=== PATIENT | male | born 1970 | race Caucasian/White ===

== ENCOUNTER 2016-09-22 10:01 | Observation (INO) ==
[2016-09-22 10:31] LABS: Basophils # 0.1 K/mcL (0.0-0.2); Basophils % 0.6 %; Eosinophils # 0.4 K/mcL (0.0-0.6); Eosinophils % 4.4 %; Hematocrit 48.9 % (37.5-50.1); Hemoglobin 16.3 g/dL (12.9-16.9); Immature Granulocytes % 0.3 % (0-4); Lymphocytes # 2.4 K/mcL (0.6-4.6); Lymphocytes % 29.9 %; Mean Corpuscular HGB Conc 33.3 g/dL (31.6-35.5); Mean Corpuscular Hemoglobin 30.8 pg (28.0-33.3); Mean Corpuscular Volume 92.4 fL (83.0-100.0); Mean Platelet Volume 10.7 fL (9.4-12.4); Monocytes # 0.5 K/mcL (0.0-1.3); Monocytes % 6.1 %; Neutrophils # 4.6 K/mcL (1.6-8.9); Platelet Count 287 K/mcL (140-400); Red Blood Count 5.29 M/mcL (4.19-5.50); Red Cell Distribution Width 13.4 % (11.5-14.5); Segmented Neutrophils % 58.7 %
[2016-09-22 10:33] LABS: INR 2.4; Prothrombin Time 26.3 Seconds (9.4-12.1)
[2016-09-22 10:36] LABS: Activated Partial Thrombo Time 42.4 Seconds (26.0-36.0)
[2016-09-22 10:39] LABS: BUN/Creatinine Ratio 14 (6-26); Blood Urea Nitrogen 10 mg/dL (8-26); Calcium 6.8 mg/dL (8.6-10.8); Carbon Dioxide 24 mEq/L (19-29); Chloride 113 mEq/L (98-109); Glucose 105 mg/dL (70-99); Osmolality,Calculated 293 (280-300); Potassium 2.9 mEq/L (3.5-4.5); Sodium 142 mEq/L (136-145); eGFR For African Americans > 60 (> 60); eGFR For Non-African Americans > 60 (> 60)
--- NOTE | 2016-09-22 10:39 | Emergency Department Note ---
Disposition Clinical Impression: Hypokalemia Chest pain Qualifiers: Chest pain type: unspecified Qualified Code(s): R07.9 - Chest pain, unspecified Disposition: Admitted As Inpatient Condition: Serious Chest Pain HPI - General Chief Complaint: ED Chest Pain Stated Complaint: CP Time Seen by Provider: 09/22/16 10:15 Source: patient Limitations: no limitations Vital Signs Reviewed: Yes Nursing Notes Reviewed: Yes - History of Present Illness HPI Narrative: Mr. Piedra is a 45-year-old man presented ER for chest pain that began at 8 AM. Has a pertinent history of CHF, CAD, hypertension, PAD, COPD, [place] in 2013 resulting in 2 vessel CABG[address] Patient [address] Dr[address] Akers for cardiology, has an appointment next week. Patient states his pain is precordial, sharp, stabbing pain that radiates to his left shoulder. She denies radiation to his jaw or back. Initially pain rated as 10out of 10, currently an 8 out of 10. Denies N/V , fever, recent illness. Patient states he normally takes his medications of the evening, taking anything for the pain this morning. And since nothing seems to make the pain better but walking makes the pain worse. Pt complaint: chest pain Onset (ago): hour(s) Time: 08:00 Duration: constant Onset: awoke with symptoms Pain Location: left chest Severity: severe Severity scale (1-10): 8 Quality: sharp Pain Radiation: LUE Worsens with: exertion, movement Context: history of DVT/PE Associated symptoms: Reports: dyspnea. Denies: nausea, vomiting, syncope Treatments prior to arrival chest pain: none - Related Data Home Medications Medication Instructions Recorded Confirmed Aspirin 81 mg PO DAILY 04/28/15 09/22/16 Atorvastatin [Lipitor] 80 mg PO HS 04/28/15 09/22/16 Carvedilol [Coreg] 6.25 mg PO BID 04/28/15 09/22/16 Famotidine [Pepcid] 20 mg PO BID 04/28/15 09/22/16 Isosorbide MONOnitrate (24 HR) 90 mg PO DAILY 04/28/15 09/22/16 [Imdur] Lisinopril [Zestril] 5 mg PO DAILY 04/28/15 09/22/16 Nitroglycerin [Nitrostat] 0.4 mg SL AD PRN 01/18/16 09/22/16 Enoxaparin [Lovenox] 100 mg SQ Q12HR PRN 06/14/16 09/22/16 Ropinirole HCl [Requip] 0.5 mg PO HS 06/14/16 09/22/16 Tizanidine HCl [Zanaflex] 2 mg PO TID PRN 06/14/16 09/22/16 Acetaminophen w/Cod 300-30 mg 1 tab PO Q8H PRN 09/22/16 09/22/16 [Tylenol w/Codeine #3] Warfarin [Coumadin] 5 mg PO DAILY 09/22/16 09/22/16 Previous Rx's Medication Instructions Recorded Furosemide [Lasix] 20 mg PO BID #90 tablet 06/18/16 Potassium Chloride 10 meq PO BIDWM #60 tab.er.prt 06/18/16 Allergies Allergy/AdvReac Type Severity Reaction Status Date / Time tramadol Allergy Hives Verified 02/10/15 17:31 All systems ED: reviewed and negative except as stated. Constitutional: Denies: fever, chills Eyes: Denies: vision change ENT ED: Denies: hearing loss Cardiovascular: Reports: chest pain. Denies: syncope Gastrointestinal: Denies: abdominal pain, nausea, vomiting Musculoskeletal: Reports: back pain (chronic) Chest Pain PMH - Past Medical History Medical history: Reports: COPD, coronary artery disease, DVT (LLE), hypertension , myocardial infarction, peripheral artery disease, other (LV thrombus) Surgical history: Reports: cholecystectomy, coronary bypass (CABG) Psychiatric history: Reports: no psych history Prior Cardiac Testing/Procedures: Echocardiogram, CTA Chest/CTA Coronary Angiography, CABG - Social History Smoking Status: Former smoker (quit in 2013) Alcohol use: Reports: none Drug use: Reports: none Physical Exam - General Limitations: no limitations General appearance: alert, in no apparent distress - Head Head exam: atraumatic, normocephalic - Eye Eye exam: Present: normal appearance, EOMI - ENT ENT exam: normal exam, mucous membranes moist, normal external ear exam - Neck Neck exam: Present: normal inspection, full ROM - Chest Chest inspection: Present: normal inspection, symmetric chest wall rise. Absent : tenderness, rash - Respiratory Respiratory exam: Present: other (decreased breath sounds bilaterally). Absent : respiratory distress, wheezes - Cardiovascular Cardiovascular exam: Present: regular rate, +S1, +S2 - Abdominal Exam Abdominal exam: Present: soft, tenderness, normal bowel sounds. Absent: guarding, rebound, rigidity Abdominal tenderness: Present: RUQ - Extremities Exam Extremities exam: Present: normal inspection, full ROM. Absent: pedal edema - Neurological Exam Neurological exam: Present: alert, oriented X3 - Psychiatric Psychiatric exam: Present: normal affect, normal mood - Skin Skin exam: Present: warm, dry, intact Course - Reevaluation(s) Reevaluation #1: Patient received 2mg morphine and 3 doses of SL nitro. Patient's chest pain has improved to 5/10, but still present. With patient's extensive cardiac history, discussed plan to admit for R/O chest pain, patient states understanding and agreement. Time: 11:20 Reevaluation #2: Found to be hypokalemic with potassium of 2.9, replaced with PO and IV potassium. Will check magnesium level. Time: 11:55 Reevaluation #3: Magnesium returned at 1.2, will replace. Time: 12:27 - Consultations Consultation #1: Spoke to DAPHNE Graham admitting for hospitalist. Agreed to accept patient for rule out chest pain. Time: 11:54 Vital Signs Temperature 98.2 F 09/22/16 10:07 Pulse Rate 77 09/22/16 10:07 Respiratory Rate 18 09/22/16 10:07 Blood Pressure 146/103 09/22/16 10:07 O2 Sat by Pulse Oximetry 98 09/22/16 10:07 Temperature 98.2 F 09/22/16 10:07 Pulse Rate 69 09/22/16 11:59 Respiratory Rate 18 09/22/16 11:59 Blood Pressure 147/104 09/22/16 11:59 O2 Sat by Pulse Oximetry 95 09/22/16 11:59 Oxygen Delivery Oxygen Delivery Room Air Chest Pain - Differential Diagnosis Likely: atypical chest pain - Medical Records Medical records reviewed: Yes I reviewed the patient's medical records. - Lab Data Lab results reviewed: Yes I reviewed the patient's lab results. Result diagrams: 09/22/16 10:14 09/22/16 10:14 Lab Results 09/22/16 09/22/16 09/22/16 Range/Units 10:14 10:14 10:14 WBC 7.9 (4.3-11.1) K/mcL RBC 5.29 (4.19-5.50) M/mcL Hgb 16.3 (12.9-16.9) g/dL Hct 48.9 (37.5-50.1) % MCV 92.4 (83.0-100.0) fL MCH 30.8 (28.0-33.3) pg MCHC 33.3 (31.6-35.5) g/dL RDW 13.4 (11.5-14.5) % Plt Count 287 (140-400) K/mcL MPV 10.7 (9.4-12.4) fL Immature Gran % 0.3 (0-4) % Seg Neutrophils % 58.7 % Lymphocytes % 29.9 % Monocytes % 6.1 % Eosinophils % 4.4 % Basophils % 0.6 % Neutrophils # 4.6 (1.6-8.9) K/mcL Lymphocytes # 2.4 (0.6-4.6) K/mcL Monocytes # 0.5 (0.0-1.3) K/mcL Eosinophils # 0.4 (0.0-0.6) K/mcL Basophils # 0.1 (0.0-0.2) K/mcL PT 26.3 H (9.4-12.1) Seconds INR 2.4 APTT 42.4 H (26.0-36.0) Seconds Sodium 142 (136-145) mEq/L Potassium 2.9 L (3.5-4.5) mEq/L Chloride 113 H (98-109) mEq/L Carbon Dioxide 24 (19-29) mEq/L BUN 10 (8-26) mg/dL Creatinine 0.73 (0.72-1.25) mg/dL Est GFR ( Amer) > 60 (> 60) Est GFR (Non-Af Amer) > 60 (> 60) BUN/Creatinine Ratio 14 (6-26) Glucose 105 H (70-99) mg/dL Calculated Osmolality 293 (280-300) Calcium 6.8 L (8.6-10.8) mg/dL Magnesium 1.2 L (1.6-2.6) mg/dL Troponin I (0-0.03) ng/mL 09/22/16 Range/Units 10:14 WBC (4.3-11.1) K/mcL RBC (4.19-5.50) M/mcL Hgb (12.9-16.9) g/dL Hct (37.5-50.1) % MCV (83.0-100.0) fL MCH (28.0-33.3) pg MCHC (31.6-35.5) g/dL RDW (11.5-14.5) % Plt Count (140-400) K/mcL MPV (9.4-12.4) fL Immature Gran % (0-4) % Seg Neutrophils % % Lymphocytes % % Monocytes % % Eosinophils % % Basophils % % Neutrophils # (1.6-8.9) K/mcL Lymphocytes # (0.6-4.6) K/mcL Monocytes # (0.0-1.3) K/mcL Eosinophils # (0.0-0.6) K/mcL Basophils # (0.0-0.2) K/mcL PT (9.4-12.1) Seconds INR APTT (26.0-36.0) Seconds Sodium (136-145) mEq/L Potassium (3.5-4.5) mEq/L Chloride (98-109) mEq/L Carbon Dioxide (19-29) mEq/L BUN (8-26) mg/dL Creatinine (0.72-1.25) mg/dL Est GFR ( Amer) (> 60) Est GFR (Non-Af Amer) (> 60) BUN/Creatinine Ratio (6-26) Glucose (70-99) mg/dL Calculated Osmolality (280-300) Calcium (8.6-10.8) mg/dL Magnesium (1.6-2.6) mg/dL Troponin I 0.02 (0-0.03) ng/mL - Radiology Data Radiology results reviewed: Yes I reviewed the patient's radiology results. Chest X-Ray 09/22/16 10:16 IMPRESSION: There is no evidence of acute cardiopulmonary abnormality. D/ / Kian Rodriguez MD / Kian Rodriguez MD Interpreting Provider: Kian Rodriguez MD - EKG Data EKG attestation: Yes I reviewed and interpreted this EKG. EKG shows normal: sinus rhythm Rate: normal When compared to previous EKG there are: no significant changes Interpretation: no acute changes, unchanged when compared to prior tracing (date ) (09/08/16) Heart Score - Score History: Highly Suspicious EKG: Non Specific repolarisation Disturbance Age: 45-65 Risk Factors: Equal/Greater than 3 risk factor or history of atherosclerotic disease Troponin: Less than normal limit HEART Score Total: 6 Attestation Statement - Attestation Attestation: I examined this patient and my medical decision-making was reviewed with the ENVIRONMENT FRIENDLY LANDSCAPE DESIGNER/PA/Advanced Practice Nurse/Resident Physician. I agree with the documented findings, disposition and treatment plan as described except to the extent set forth below. Patient presented the ER 2 hours substernal chest pain has a prior history of cardiac stents 2 denies any nausea vomiting or diaphoresis. Exam heart was regular lungs clear labs reviewed EKG no ischemic changes first troponin is negative. He gets some mild relief with nitroglycerin 3 woman in the hospital service for ACS rule out
[2016-09-22] MEDS ORDERED: *HR* Morphine 2 MG/ML SYRINGE IVP ONE (10:42)
[2016-09-22] MEDS ORDERED: Aspirin 81 MG TAB.CHEW PO ONE (10:42)
[2016-09-22] MEDS: Nitroglycerin 0.4 MG TAB.SUBL SL ONE ×3 (10:56→11:12)
[2016-09-22 12:12] LABS: Magnesium 1.2 mg/dL (1.6-2.6)
[2016-09-22] MEDS ORDERED: 0.9 % Sodium Chloride 500 ML IVC ONE (12:32)
[2016-09-22] MEDS ORDERED: Naloxone 0.4 MG/ML INJ IVP PRN (13:17)
[2016-09-22] MEDS ORDERED: Nitroglycerin 0.4 MG TAB.SUBL SL PRN (13:19)
[2016-09-22] MEDS ORDERED: tiZANidine 4 MG TABLET PO PRN (13:19)
[2016-09-22] MEDS: *HR* Morphine 2 MG/ML SYRINGE IVP PRN ×3 (15:12→23:10)
[2016-09-22] MEDS: Nitroglycerin 25 MG/250 ML INFUS..BTL IVC SCH (15:15)
--- NOTE | 2016-09-22 16:34 | Internal Med History&Physical ---
<Sunil Mauricio D - Last Filed: 09/22/16 18:55> Time of Encounter: 18:55 Internal Medicine - H&P: HPI History of present illness: Mr. Piedra is a 45 year old male Internal Medicine - H&P: Meds Aspirin 81 mg PO DAILY 04/28/15 [History] Atorvastatin [Lipitor] 80 mg PO HS 04/28/15 [History] Carvedilol [Coreg] 6.25 mg PO BID 04/28/15 [History] Famotidine [Pepcid] 20 mg PO BID 04/28/15 [History] Isosorbide MONOnitrate (24 HR) [Imdur] 90 mg PO DAILY 04/28/15 [History] Lisinopril [Zestril] 5 mg PO DAILY 04/28/15 [History] Nitroglycerin [Nitrostat] 0.4 mg SL AD PRN 01/18/16 [History] Enoxaparin [Lovenox] 100 mg SQ Q12HR PRN 06/14/16 [History] Ropinirole HCl [Requip] 0.5 mg PO HS 06/14/16 [History] Tizanidine HCl [Zanaflex] 2 mg PO TID PRN 06/14/16 [History] Furosemide [Lasix] 20 mg PO BID #90 tablet 06/18/16 [Rx] Potassium Chloride 10 meq PO BIDWM #60 tab.er.prt 06/18/16 [Rx] Acetaminophen w/Cod 300-30 mg [Tylenol w/Codeine #3] 1 tab PO Q8H PRN 09/22/16 [ History] Warfarin [Coumadin] 5 mg PO DAILY 09/22/16 [History] Allergies tramadol Allergy (Verified 02/10/15 17:31) Hives All Systems PM: A 10-system review of systems was performed and is negative for pertinent findings except as documented above in the HPI. - Constitutional Vitals: Temp Pulse Resp BP Pulse Ox 97.8 F 64 16 132/87 94 L 09/22/16 17:01 09/22/16 17:01 09/22/16 17:01 09/22/16 17:01 09/22/16 17:01 Internal Med - H&P Results - Labs CBC & Chem 7: 09/22/16 10:14 09/22/16 10:14 Labs: Cardiac Enzymes 09/22/16 Range/Units 17:41 Troponin I 0.01 (0-0.03) ng/mL - Attending Attestation Patient seen and examined by me personally after initial evaluation from Hali Schroeder CNP . I agree with the current documented findings disposition and treatment plan. He has oriented started on a nitro drip. He still continues to have some chest pressure. We will have the nitro drip tapered/titrated up. Also have an order for morphine for other chest pain beyond that. Serial troponins will be obtained. Also there will be follow-up on the magnesium and potassium because they have been replaced today and will be an echocardiogram ordered for follow- up of the finding of a left ventricular clot that was noticed on an echo done in January 2016. He continues on Coumadin for that. Also there will be a cardiology consultation on as well. <Hali Schroeder - Last Filed: 09/22/16 23:32> Date of Encounter: 09/22/16 Time of Encounter: 16:31 Assessment and Plan (1) Chest pain Current visit: Yes Status: Acute Patient with chest pain radiating to left shoulder, relieved somewhat by nitro and morphine. Initial troponin negative at 0.02, EKG showed no changes from previous. Last cardiac cath on 06/14/16 showed 3 vessel CAD, with patent grafts to LAD and RCA Serial troponins for trend continuous pharmacy teacher Nitro drip Morphine 2mg IVP Q3hr PRN for chest pain unrelieved by nitro echocardiogram in the morning Consult to cardiology given patient's significant cardiac history. Qualifiers: Chest pain type: precordial pain Qualified Code(s): R07.2 - Precordial pain (2) Coronary artery disease Current visit: No Status: Chronic Patient has history of [place] in 2013, with 2 vessel CABG. Most recent cardiac cath in June of 2016 showed Triple vessel coronary artery disease, with patent bypass grafts to LAD and RCA, and 100% stenosis of the 2nd marginal, which fills via collaterals. Continue home dose of aspirin, coreg, imdur, lisinopril. Nitro drip for active chest pain. Cardiology consulted. Qualifiers: Coronary Disease-Associated Artery/Lesion type: [place] artery [place] vs. transplanted heart: [place] heart Associated angina: angina presence unspecified Qualified Code(s): I25.10 - Atherosclerotic heart disease of [place] coronary artery without angina pectoris (3) Essential hypertension Current visit: No Status: Chronic (4) LV (left ventricular) mural thrombus Current visit: No Status: Resolved Patient on coumadin, INR is therapeutic at 2.4. Last echo 01/18/16 did not visualize a thrombus, however, a mall layered thrombus cannot be entirely excluded due to image quality. echocardiogram tomorrow to check if thrombus persists. (5) Hypokalemia Current visit: Yes Status: Acute potassium of 2.9. Patient's lasix was recently increased and her reports he has been unable to get his potassium supplement refilled so has not been taking it. patient given 40 mEq PO and 10mEq IV in ED. 20mEq PO BID Recheck chemistry in the morning. (6) Hypomagnesemia Current visit: Yes Status: Acute Magnesium of 1.2 Patient given 2g of IVPB magnesium by ED Recheck chemistry in the morning. (7) DVT prophylaxis Current visit: Yes Status: Acute Encourage ambulation anti-embolic stockings Patient on coumadin and INR is therapeutic at 2.4 Internal Medicine - H&P: HPI Chief complaint: chest pain Admitted From: Emergency Dept Plans for Post Hospital Care: Home History of present illness: Mr. Piedra is a 45 year old male with congestive heart failure, coronary artery disease, hypertension, COPD, [place] status post 2 vessel CABG in 2013, left ventricular thrombus on Coumadin, presented to the emergency department today with complaints of chest pain. He reports the chest pain started early this morning and is located in his mid sternum radiating to his left shoulder. He describes it as a constant ache with intermittent sharp pain. He also reports left fingers are tingling. He denies any shortness of breath or headache or palpitations, but he does report occasional lightheadedness. Patient denies any fever, chills, sweats, nausea, vomiting, body aches. Evaluation in the emergency department included an EKG which showed no significant changes. Troponin was negative at 0.02. He was hypokalemic with potassium of 2.9 and his magnesium was low at 1.2. INR was therapeutic at 2.4. The patient was given nitroglycerin and morphine in the emergency department which improved his chest pain from a 10 out of 10 to a 5 out of 10. He was also given potassium and magnesium replacement. On exam, patient is alert and oriented, in no acute distress. Lungs have bilateral inspiratory wheezes. Heart had a regular rate and rhythm. Past Med Surg Social Fam HX - Past Medical History Medical history: COPD, coronary artery disease, DVT (LLE), hypertension, myocardial infarction, peripheral artery disease, other (LV thrombus) Psychiatric history: no psych history - Past Surgical History Surgical History: cholecystectomy, coronary bypass (CABG), orthopedic, other ( left foot) - Social History Smoking Status: Former smoker (quit in 2014, 60 pack year history) Smokeless Tobacco Status: No Alcohol use: none Drug use: none - Family History Mother Name: Marleni Family Member Ethnicity: Non- Living Status: Age at : 66 Cause of : Heart attack Hx Family Cardiac Disorders: Yes Hx Family Respiratory Disorders: Yes Hx Family Cancer: No Hx Family GI Disorders: No Hx Family Genitourinary Disorders: No Hx Family Endocrine Disorder: Yes Hx Family Musculoskeletal Disorders: No Hx Family Neuromuscular Disorders: No Hx Family Neurologic Disorders: No Hx Family HEENT Disorders: No Hx Family Autoimmune Disorders: No Hx Family Reproductive Disorders: No Hx Family Psychosocial Disorders: No Hx Family Medical Disorders: No Father Living Status: Age at : 42 Cause of : emphysema All Systems PM: A 10-system review of systems was performed and is negative for pertinent findings except as documented above in the HPI. - Constitutional Constitutional: no chills, no fever(s), no night sweats - EENT Eyes: no change in vision, no discharge, no pain, no photophobia Ears: no ear discharge, no ear pain, no tinnitus Nose, mouth and throat: no dysphagia, no nasal discharge, no neck pain, no sore throat - Cardiovascular Cardiovascular ROS IM: chest pain, lightheadedness, no diaphoresis, no dyspnea, no palpitations, no syncope - Respiratory Respiratory: no cough, no dyspnea, no wheezing, no excessive phlegm production - Gastrointestinal Gastrointestinal: no abdominal pain, no diarrhea, no hematemesis, no hematochezia, no melena, no nausea, no vomiting - Musculoskeletal Musculoskeletal ROS IM: tingling (left hand), no numbness - Integumentary Integumentary IM: no rash, no unusual bruising - Neurological Neurological ROS: no confusion, no convulsions, no focal weakness, no numbness, no tingling, no tremor(s) - Hematologic/Lymphatic Hematologic/Lymphatic: no easy bruising - Constitutional Vitals: Temp Pulse Resp BP Pulse Ox 97.6 F 82 20 130/96 95 09/22/16 14:18 09/22/16 15:15 09/22/16 15:15 09/22/16 15:15 09/22/16 14:18 General appearance: Present: A&O X 3, pleasant, no acute distress - Head Head exam: Present: atraumatic, normocephalic - Eye Eye exam: Present: PERRL, conjuntiva pink, sclera anicteric Pupils: Present: PERRL - Neck Neck exam general surgery: Present: supple, trachea midline. Absent: lymphadenopathy - Respiratory Respiratory exam: Present: CTAB. Absent: accessory muscle use, rales, rhonchi, wheezes - Cardiovascular Cardiovascular exam: Present: RRR, +S1, +S2. Absent: diastolic murmur, gallop, rubs, systolic murmur - GI/Abdominal GI/Abdominal exam: Present: normal bowel sounds, soft, no peritoneal signs. Absent: distended, tenderness - Extremities Exam Extremities exam: Present: warm, radial pulses palpable and symetrical. Absent : calf tenderness, cyanotic, pedal edema - Neurological Exam Neurological exam: Present: CN II-XII intact, oriented X3, no focal deficits. Absent: facial droop, speech deficit - Skin Skin exam: Present: dry, intact Internal Med - H&P Results - Labs CBC & Chem 7: 09/22/16 10:14 09/22/16 10:14 Labs: All Lab Results (24 Hours) 09/22/16 09/22/16 09/22/16 Range/Units 10:14 10:14 10:14 WBC 7.9 (4.3-11.1) K/mcL RBC 5.29 (4.19-5.50) M/mcL Hgb 16.3 (12.9-16.9) g/dL Hct 48.9 (37.5-50.1) % MCV 92.4 (83.0-100.0) fL MCH 30.8 (28.0-33.3) pg MCHC 33.3 (31.6-35.5) g/dL RDW 13.4 (11.5-14.5) % Plt Count 287 (140-400) K/mcL MPV 10.7 (9.4-12.4) fL Immature Gran % 0.3 (0-4) % Seg Neutrophils % 58.7 % Lymphocytes % 29.9 % Monocytes % 6.1 % Eosinophils % 4.4 % Basophils % 0.6 % Neutrophils # 4.6 (1.6-8.9) K/mcL Lymphocytes # 2.4 (0.6-4.6) K/mcL Monocytes # 0.5 (0.0-1.3) K/mcL Eosinophils # 0.4 (0.0-0.6) K/mcL Basophils # 0.1 (0.0-0.2) K/mcL PT 26.3 H (9.4-12.1) Seconds INR 2.4 APTT 42.4 H (26.0-36.0) Seconds Sodium 142 (136-145) mEq/L Potassium 2.9 L (3.5-4.5) mEq/L Chloride 113 H (98-109) mEq/L Carbon Dioxide 24 (19-29) mEq/L BUN 10 (8-26) mg/dL Creatinine 0.73 (0.72-1.25) mg/dL Est GFR ( Amer) > 60 (> 60) Est GFR (Non-Af Amer) > 60 (> 60) BUN/Creatinine Ratio 14 (6-26) Glucose 105 H (70-99) mg/dL Calculated Osmolality 293 (280-300) Calcium 6.8 L (8.6-10.8) mg/dL Magnesium 1.2 L (1.6-2.6) mg/dL Troponin I (0-0.03) ng/mL 09/22/16 Range/Units 10:14 WBC (4.3-11.1) K/mcL RBC (4.19-5.50) M/mcL Hgb (12.9-16.9) g/dL Hct (37.5-50.1) % MCV (83.0-100.0) fL MCH (28.0-33.3) pg MCHC (31.6-35.5) g/dL RDW (11.5-14.5) % Plt Count (140-400) K/mcL MPV (9.4-12.4) fL Immature Gran % (0-4) % Seg Neutrophils % % Lymphocytes % % Monocytes % % Eosinophils % % Basophils % % Neutrophils # (1.6-8.9) K/mcL Lymphocytes # (0.6-4.6) K/mcL Monocytes # (0.0-1.3) K/mcL Eosinophils # (0.0-0.6) K/mcL Basophils # (0.0-0.2) K/mcL PT (9.4-12.1) Seconds INR APTT (26.0-36.0) Seconds Sodium (136-145) mEq/L Potassium (3.5-4.5) mEq/L Chloride (98-109) mEq/L Carbon Dioxide (19-29) mEq/L BUN (8-26) mg/dL Creatinine (0.72-1.25) mg/dL Est GFR ( Amer) (> 60) Est GFR (Non-Af Amer) (> 60) BUN/Creatinine Ratio (6-26) Glucose (70-99) mg/dL Calculated Osmolality (280-300) Calcium (8.6-10.8) mg/dL Magnesium (1.6-2.6) mg/dL Troponin I 0.02 (0-0.03) ng/mL - Diagnostic Studies Chest x-ray Additional comments: Chest X-Ray 09/22/16 10:16 IMPRESSION: There is no evidence of acute cardiopulmonary abnormality. D/ / Kian Rodriguez MD / Kian Rodriguez MD Interpreting Provider: Kian Rodriguez MD
[2016-09-22] MEDS ORDERED: 0.9 % Sodium Chloride 500 ML ONE (16:44)
[2016-09-22] MEDS: Furosemide 20 MG TABLET PO SCH (16:48)
[2016-09-22] MEDS: Ipratropium/Albuterol Neb 3 ML IH SCH ×2 (19:45→22:47)
[2016-09-22] MEDS: rOPINIRole 1 MG TABLET PO SCH (21:13)
[2016-09-22] MEDS: Famotidine 20 MG TABLET PO SCH (21:15)
[2016-09-22 23:46] LABS: Basophils % 0.4 %; Eosinophils # 0.6 K/mcL (0.0-0.6); Eosinophils % 5.2 %; Hemoglobin 15.1 g/dL (12.9-16.9); Immature Granulocytes % 0.4 % (0-4); Immature Platelets 5.8 % (1.1-6.1); Lymphocytes # 4.7 K/mcL (0.6-4.6); Lymphocytes % 43.5 %; Mean Corpuscular HGB Conc 33.6 g/dL (31.6-35.5); Mean Corpuscular Hemoglobin 30.9 pg (28.0-33.3); Mean Corpuscular Volume 92.2 fL (83.0-100.0); Mean Platelet Volume 10.5 fL (9.4-12.4); Monocytes # 0.9 K/mcL (0.0-1.3); Monocytes % 7.9 %; Neutrophils # 4.6 K/mcL (1.6-8.9); Platelet Count 266 K/mcL (140-400); Red Blood Count 4.88 M/mcL (4.19-5.50); Red Cell Distribution Width 13.6 % (11.5-14.5); Segmented Neutrophils % 42.6 %
[2016-09-23 01:00] LABS: BUN/Creatinine Ratio 11 (6-26); Blood Urea Nitrogen 10 mg/dL (8-26); Carbon Dioxide 24 mEq/L (19-29); Chloride 106 mEq/L (98-109); Glucose 109 mg/dL (70-99); Osmolality,Calculated 294 (280-300); Potassium 3.9 mEq/L (3.5-4.5); Sodium 142 mEq/L (136-145); eGFR For African Americans > 60 (> 60); eGFR For Non-African Americans > 60 (> 60)
[2016-09-23 01:01] LABS: Calcium 8.7 mg/dL (8.6-10.8)
[2016-09-23] MEDS: *HR* Morphine 2 MG/ML SYRINGE IVP PRN ×5 (03:31→20:54)
[2016-09-23] MEDS: Ipratropium/Albuterol Neb 3 ML IH SCH ×4 (04:04→22:23)
--- NOTE | 2016-09-23 06:22 | Electrocardiograph Report ---
[facility] Test Date: 2016-09-22 Pat Name: Duncan Piedra Department: 103 Room: 2A34 Gender: M Emt/Dispatcher: RIZWAN : 1970 Requested By: Pedro Akins Order Number: [id number] Reading MD: Ochoa Alaniz DO Measurements Intervals [place] Rate: 72 P: 63 HI: 174 QRS: -11 QRSD: 89 T: 116 QT: 334 QTc: 358 Interpretive Statements SINUS RHYTHM WITH SINUS ARRHYTHMIA ANTERIOR MYOCARDIAL INFARCTION, OF INDETERMINATE AGE Electronically Signed On 09-23-2016 6:21:06 EDT by Ochoa Alaniz DO
[2016-09-23] MEDS ORDERED: Perflutren Lipid Microsphere 1.3 ML in 0.9 % Sodium Chloride 8.7 ML IVP ONE (08:44)
[2016-09-23] MEDS ORDERED: Perflutren Lipid Microsphere 2 ML VIAL ONE (08:46)
[2016-09-23] MEDS ORDERED: Isosorbide MONOnitrate (24 HR) 60 MG TAB.ER.24H PO SCH (09:00)
[2016-09-23] MEDS: Furosemide 20 MG TABLET PO SCH ×2 (09:28→17:48)
[2016-09-23] MEDS: Famotidine 20 MG TABLET PO SCH ×2 (09:28→20:50)
[2016-09-23] MEDS: Aspirin 81 MG TAB.CHEW PO SCH (09:28)
[2016-09-23] MEDS ORDERED: 0.9 % Sodium Chloride 500 ML ONE (09:32)
--- NOTE | 2016-09-23 10:28 | Cardiology Consult Note ---
Date of Encounter: 09/23/16 Time of Encounter: 10:00 Assessment and Plan (1) Chest pain Current Visit: Yes Status: Acute Patient with chest pain and history of OK with CABG x 2 Troponins negative EKG NSR, no changes from previous Pharm stress 05/30/16 demonstrated severe reduction in perfusion to LV; large, mod-severe, fixed perfusion defects involving the mid to apical anterior, anteroseptal, all apical segments, apex, inferior, inferolateral segments suggestive of prior infarcts LHC on 06/14/16 showed 3 vessel CAD, patent bypass grafts to proximal LAD and Right PDA, chronic 100% occlusion to 2nd marginal with collateral flow Patient currently on Nitro drip and Morphine 2mg for chest pain Echo 01/19/16 LVEF 35-40%, mild LV diastolic dysfunction, no LV thrombus visualized, however, small thrombus could not be excluded due to image quality Plan: Increase Ranexa to 1000mg BID Discontinue nitro drip Continue ASA, Lipitor, Imdur, BB Follow up with Dr. Akers in 6 days as scheduled Qualifiers: Chest pain type: precordial pain Qualified Code(s): R07.2 - Precordial pain (2) Coronary artery disease Current Visit: No Status: Chronic See plan as above Qualifiers: Coronary Disease-Associated Artery/Lesion type: [place] artery [place] vs. transplanted heart: [place] heart Associated angina: angina presence unspecified Qualified Code(s): I25.10 - Atherosclerotic heart disease of [place] coronary artery without angina pectoris (3) Hyperlipidemia Current Visit: No Status: Chronic Continue Lipitor Qualifiers: Hyperlipidemia type: unspecified Qualified Code(s): E78.5 - Hyperlipidemia , unspecified (4) Essential hypertension Current Visit: No Status: Chronic Stable, continue home medications Continue to monitor Discussion w patient/family: The assessment and plan as outlined above was discussed with the patient and/or family members who expressed understanding and agreement. All questions were answered. Thank you for involving us in the care of your patient. Please call with any questions. History of Present Illness Consult date: 09/22/16 Requesting physician: Hali Schroeder Consult reason: s/p CABG, chest pain unrelieved by nitro Chief complaint: Chest pain History of present illness: Mr. Piedra is a 45 year old male with past medical history significant for OK, CABG x 2 bypass (2013), CAD, CHF, HLD, HTN, PVD, DVT (LLE), LV thrombus, COPD who presented to [facility] ED 1 day ago with complaint of sharp, stabbing, left chest pain. Pain started yesterday morning and was 8/10 at onset. Pain was located in left chest and radiated to left arm. Patient states that he took 2 SL nitroglycerin without relief. Patient was placed on a nitro drip and given IV pain medication. Troponin negative. EKG NSR, unchanged from previous. Patient states that nitro does not help the chest pain. Pain is only relieved by IV morphine. At this time, patient is resting comfortably in bed. Pain is rated as 4/10, located to left parasternal chest at locationn of ribs 3-6. Pain is non-radiating at this time. Patient admits to chronic angina and chronic dyspnea on exertion. Past Med Surg Social Fam HX - Past Medical History Medical history: COPD, coronary artery disease, DVT (LLE), hypertension, myocardial infarction, peripheral artery disease, other (LV thrombus) Psychiatric history: no psych history - Past Surgical History Surgical History: cholecystectomy, coronary bypass (CABG), orthopedic, other ( left foot) - Social History Smoking Status: Former smoker (quit in 2014, 60 pack year history) Smokeless Tobacco Status: No Alcohol use: none Drug use: none - Family History Mother Name: Marleni Family Member Ethnicity: Non- Living Status: Age at : 66 Cause of : Heart attack Hx Family Cardiac Disorders: Yes Hx Family Respiratory Disorders: Yes Hx Family Cancer: No Hx Family GI Disorders: No Hx Family Genitourinary Disorders: No Hx Family Endocrine Disorder: Yes Hx Family Musculoskeletal Disorders: No Hx Family Neuromuscular Disorders: No Hx Family Neurologic Disorders: No Hx Family HEENT Disorders: No Hx Family Autoimmune Disorders: No Hx Family Reproductive Disorders: No Hx Family Psychosocial Disorders: No Hx Family Medical Disorders: No Father Living Status: Age at : 42 Cause of : emphysema Medications and Allergies Aspirin 81 mg PO DAILY 04/28/15 [History] Atorvastatin [Lipitor] 80 mg PO HS 04/28/15 [History] Carvedilol [Coreg] 6.25 mg PO BID 04/28/15 [History] Famotidine [Pepcid] 20 mg PO BID 04/28/15 [History] Isosorbide MONOnitrate (24 HR) [Imdur] 90 mg PO DAILY 04/28/15 [History] Lisinopril [Zestril] 5 mg PO DAILY 04/28/15 [History] Nitroglycerin [Nitrostat] 0.4 mg SL AD PRN 01/18/16 [History] Enoxaparin [Lovenox] 100 mg SQ Q12HR PRN 06/14/16 [History] Ropinirole HCl [Requip] 0.5 mg PO HS 06/14/16 [History] Tizanidine HCl [Zanaflex] 2 mg PO TID PRN 06/14/16 [History] Furosemide [Lasix] 20 mg PO BID #90 tablet 06/18/16 [Rx] Potassium Chloride 10 meq PO BIDWM #60 tab.er.prt 06/18/16 [Rx] Acetaminophen w/Cod 300-30 mg [Tylenol w/Codeine #3] 1 tab PO Q8H PRN 09/22/16 [ History] Warfarin [Coumadin] 5 mg PO DAILY 09/22/16 [History] Allergies tramadol Allergy (Verified 02/10/15 17:31) Hives All Systems Review: A 10-system review of systems was performed and is negative for pertinent findings except as documented above in the HPI. Physical Examination Vital Signs, Last 4 Hours Temp Pulse Resp BP Pulse Ox 09/23/16 09:44 64 18 133/88 95 09/23/16 08:00 97.6 F 63 16 116/80 93 L General: Conversant, No Apparent Distress HEENT: Atraumatic, Normocephaly, Mucus Membranes Moist Neck: No JVD, Normal carotid pulses Cardiac: Reg Rate and Rhythm, Normal S1 and S2, No Murmur Lungs: Normal Breath Sounds, No Wheeze, Rales, Rhonchi Neuro: Alert and responsive Abdomen: Soft, Non-Tender Skin: No rashes noted on visualized skin Musculoskeletal: Other (Exquisite tenderness to palpation of left ribs 3-6) Extremities: No Clubbing, No Cyanosis, No Edema, Normal Pulses Results 09/22/16 23:32 09/23/16 Unknown Lab Results 09/22/16 09/22/16 09/22/16 17:41 23:32 23:32 WBC 10.9 Hgb 15.1 Hct 45.0 Plt Count 266 Sodium Potassium Chloride Carbon Dioxide BUN Creatinine Glucose Calcium Magnesium Troponin I 0.01 0.01 09/23/16 09/23/16 Unknown Unknown WBC Hgb Hct Plt Count Sodium 142 Potassium 3.9 D Chloride 106 Carbon Dioxide 24 BUN 10 Creatinine 0.87 Glucose 109 H Calcium 8.7 D Magnesium 2.2 Troponin I - Imaging and Cardiology Chest Xray: report reviewed, image reviewed Stress Test: report reviewed Echo: report reviewed Cardiac cath: report reviewed - EKG Interpretation EKG results cardiology: personally reviewed, normal ECG, sinus rhythm Consult Discharge Plan - Plan Referrals: Colten Roman, [Primary Care Provider] - 09/29/16 1:15 pm (Dr. Roman is at his new location at [facility]. Phone number is [phone]. You will be seen by June Dempsey CNP in with that office. If you have any questions feel free to call)
--- NOTE | 2016-09-23 11:11 | ECHO - Doppler Report ---
Echo with Imaging Enhancement Agent Name: Duncan Piedra Date of Study: 09/23/2016 Date: 1970 Ht: 69.0 in Medical Record#: [id number] Age: 45 Wt: 222.0 lb Gender: Male BSA: 2.16 Order #: [id number] Location: [facility] Room #: 2A34 Reading Physician: Marcus Shanks DO, FACC, ROSA BRADLEY Network Control Technician: Lilibeth Wooten RVT, RDNOLAN Ordering Physician: Hali Schroeder CNP Primary Physician: Colten Roman DO Indications: Chest pain Impressions: LVEF 40%. Mildly dilated left ventricle. Segmental left ventricular systolic dysfunction. There is a small left ventricular apical thrombus. Atypical septal motion consistent with post-operative status. Grossly normal right ventricular structure and function. Moderate mitral regurgitation, which was not well evaluated and could be underestimated. No evidence of pulmonary hypertension. Recommend treatment of apical thrombus. Left Ventricular Wall Motion: Rest Echo Findings The apical inferior, basal inferior, apical anterior, apical lateral and basal inferior lateral amador were hypokinetic. The apex and apical septal amador were akinetic. All other wall segments showed normal motion. Findings: Study Quality * Technically sub-optimal due to poor echocardiographic windows. ECG Findings * Sinus bradycardia. Left Ventricle * LVEF 40%. * Mildly dilated left ventricle. * Segmental left ventricular systolic dysfunction. * There is a small left ventricular apical thrombus. * Atypical septal motion consistent with post-operative status. Right Ventricle * Grossly normal right ventricular structure and function. Left Atrium * Moderately dilated left atrium. Right Atrium * Mildly dilated right atrium. Interatrial Septum * Interatrial septum not well evaluated. Aortic Valve * Aortic valve not well visualized. * No aortic stenosis. * No aortic regurgitation. Mitral Valve * Mildly thickened mitral valve leaflets. * Moderate mitral regurgitation, which was not well evaluated and could be underestimated. * No mitral stenosis. Tricuspid Valve * Normal tricuspid valve structure and function. * Trace tricuspid regurgitation. * No evidence of pulmonary hypertension. Pulmonic Valve * Pulmonic valve not well visualized. * No pulmonic regurgitation. Aorta * Normally sized aortic root. Pericardium * There is a trivial pericardial effusion present. IVC * Normal IVC dimensions and inspiratory collapse. Pulmonary Artery * Pulmonary artery not well visualized. History Hypertension Hypercholesteremia Family History of CAD History of CAD/PTCA Myocardial Infarction Coronary Artery Bypass Graft Congestive Heart Failure 01-19-2016 a Previous Echo was performed. Contrast: Definity 1.3 ml in 8.7 ml of saline 2 ml. Measurements: BP: 105/ 63 2D Normal Values RVIDd: 2.70 cm <2.7 cm IVSd: .70 cm 0.6 - 1.0 cm LVIDd: 6.00 cm 3.7 - 5.6 cm LVPWd: 1.00 cm 0.6 - 1.1 cm LVIDs: 3.70 cm 1.5 - 3.6 cm AO: 2.80 cm < 4.0 cm LA: 3.40 cm 2.0 - 4.0cm %FS: 36.20 cm >25 % LA volume: 54 Mitral Valve Dec Time:296.00 msec Peak E:1.00 m/sec Peak A:.32 m/sec E/A Ratio:3.1 Peak E' Lat [place]:8.48 cm/s Peak E' Med [place]:10.8 cm/s E/E' Lat Ratio:11.8 E/E' Med Ratio:9.3 Tricuspid Valve TV Regurg Peak Grad: 23.00mmHg TV Regurg Peak [place]: 2.40m/sec Updated by Marcus Shanks DO, FACSeverino, KIRK, ROSA on 09/23/2016 11:05:54 AM electronically signed on 09/23/2016 11:07:11 AM with status of Final Wall Motion [place]: 1=Normal, 2=Hypokinesis, 3=Akinesis, 4=Dyskinesis, 5=Aneurysmal, 6=Hyperkinetic, X=Not Visualized (Blank)=Missing
--- NOTE | 2016-09-23 15:04 | Internal Med Progress Note ---
Date of Encounter: 09/23/16 Time of Encounter: 15:02 - Assessment and plan (1) Coronary artery disease Current Visit: No Status: Chronic Assessment and plan: cabg cath last year shows patent grafts Qualifiers: Coronary Disease-Associated Artery/Lesion type: [place] artery [place] vs. transplanted heart: [place] heart Associated angina: angina presence unspecified Qualified Code(s): I25.10 - Atherosclerotic heart disease of [place] coronary artery without angina pectoris (2) Essential hypertension Current Visit: No Status: Chronic Assessment and plan: well controlled (4) Chest pain Current Visit: Yes Status: Acute Assessment and plan: seen by cardiology no intervention needed maximize medical treatment ranexa increased to 1000mg bid will incraese imdur to 120mg and add protonix Qualifiers: Chest pain type: precordial pain Qualified Code(s): R07.2 - Precordial pain (5) Hyperlipidemia Current Visit: No Status: Chronic Assessment and plan: chronic Qualifiers: Hyperlipidemia type: unspecified Qualified Code(s): E78.5 - Hyperlipidemia , unspecified - Subjective Interval history: patient with history of cad/cabg , ischemic camp ef 40%, htn lv thrombus on coumadin admitted with chest pain seen by cardiology had cath 06/2016 grafts patent no intervention was done still has persistent and recurrent chest pain - Constitutional Vitals: Temp Pulse Resp BP Pulse Ox 98.6 F 58 16 126/86 92 L 09/23/16 11:33 09/23/16 11:33 09/23/16 11:33 09/23/16 11:33 09/23/16 11:33 General appearance: Present: A&O X 3, pleasant, no acute distress - Head Head exam: Present: atraumatic, normocephalic - Eye Eye exam: Present: PERRL, conjuntiva pink, sclera anicteric Pupils: Present: PERRL - Neck Neck exam general surgery: Present: supple, trachea midline. Absent: lymphadenopathy - Respiratory Respiratory exam: Present: CTAB. Absent: accessory muscle use, rales, rhonchi, wheezes - GI/Abdominal GI/Abdominal exam: Present: normal bowel sounds, soft, no peritoneal signs. Absent: distended, tenderness Internal Medicine: Result - Labs CBC & Chem 7: 09/22/16 23:32 09/23/16 Unknown Labs: Short CBC 09/22/16 Range/Units 23:32 WBC 10.9 (4.3-11.1) K/mcL Hgb 15.1 (12.9-16.9) g/dL Hct 45.0 (37.5-50.1) % Plt Count 266 (140-400) K/mcL Neutrophils # 4.6 (1.6-8.9) K/mcL BMP 09/23/16 Unknown Sodium 142 Potassium 3.9 D Chloride 106 Carbon Dioxide 24 BUN 10 Creatinine 0.87 Glucose 109 H Calcium 8.7 D Cardiac Enzymes 09/22/16 09/22/16 Range/Units 17:41 23:32 Troponin I 0.01 0.01 (0-0.03) ng/mL - ABG Interpretation ABG results: PT/INR, D-dimer PT 26.3 Seconds (9.4-12.1) H 09/22/16 10:14 Consult Discharge Plan - Plan Referrals: Colten Roman, [Primary Care Provider] - 09/29/16 1:15 pm (Dr. Roman is at his new location at [facility]. Phone number is [phone]. You will be seen by June Dempsey CNP in with that office. If you have any questions feel free to call)
[2016-09-23] MEDS ORDERED: Isosorbide MONOnitrate (24 HR) 30 MG TAB.ER.24H PO ONE (15:19)
[2016-09-23] MEDS: Ranolazine 500 MG TAB.ER.12H PO SCH ×2 (15:29→20:50)
[2016-09-23] MEDS: Nitroglycerin 25 MG/250 ML INFUS..BTL IVC SCH (15:29)
[2016-09-23] MEDS ORDERED: *HR* Warfarin 5 MG TABLET PO SCH (18:00)
[2016-09-23] MEDS: rOPINIRole 1 MG TABLET PO SCH (20:51)
[2016-09-24] MEDS: Ipratropium/Albuterol Neb 3 ML IH SCH ×2 (04:31→10:18)
[2016-09-24 07:54] LABS: INR 1.5; Prothrombin Time 16.3 Seconds (9.4-12.1)
[2016-09-24] MEDS: Famotidine 20 MG TABLET PO SCH (08:37)
[2016-09-24] MEDS: Ranolazine 500 MG TAB.ER.12H PO SCH (08:37)
[2016-09-24] MEDS: Aspirin 81 MG TAB.CHEW PO SCH (08:37)
[2016-09-24] MEDS: *HR* Morphine 2 MG/ML SYRINGE IVP PRN (08:38)
[2016-09-24] MEDS: Furosemide 20 MG TABLET PO SCH (08:38)
[2016-09-24] MEDS ORDERED: Isosorbide MONOnitrate (24 HR) 60 MG TAB.ER.24H PO SCH (09:00)
--- NOTE | 2016-09-24 11:45 | Discharge Summary ---
Date of Encounter: 09/24/16 Time of Encounter: 11:40 - Discharge Diagnosis (1) Coronary artery disease Priority: Secondary Status: Chronic Comments: chest pain better cath 06/2016 grafts patent Qualifiers: Coronary Disease-Associated Artery/Lesion type: [place] artery [place] vs. transplanted heart: [place] heart Associated angina: angina presence unspecified Qualified Code(s): I25.10 - Atherosclerotic heart disease of [place] coronary artery without angina pectoris (2) Essential hypertension Priority: Secondary Status: Chronic Comments: well controlled (3) Chest pain Priority: Primary Status: Acute Comments: much better Qualifiers: Chest pain type: precordial pain Qualified Code(s): R07.2 - Precordial pain (4) Hyperlipidemia Priority: Secondary Status: Chronic Comments: chronic Qualifiers: Hyperlipidemia type: unspecified Qualified Code(s): E78.5 - Hyperlipidemia , unspecified - Discharge Medications Prescriptions: Ipratropium/Albuterol Neb [Duoneb] 3 ml IH QIDR #3 inhsol Isosorbide MONOnitrate (24 HR) [Imdur] 120 mg PO DAILY #30 tab.er.24h Omeprazole [PriLOSEC] 40 mg PO DAILY@0630 #30 capsule. Ranolazine [Ranexa] 1,000 mg PO BID #60 tab.er.12h Home Medications: Aspirin 81 mg PO DAILY 04/28/15 [History] Atorvastatin [Lipitor] 80 mg PO HS 04/28/15 [History] Carvedilol [Coreg] 6.25 mg PO BID 04/28/15 [History] Lisinopril [Zestril] 5 mg PO DAILY 04/28/15 [History] Nitroglycerin [Nitrostat] 0.4 mg SL AD PRN 01/18/16 [History] Enoxaparin [Lovenox] 100 mg SQ Q12HR PRN 06/14/16 [History] Ropinirole HCl [Requip] 0.5 mg PO HS 06/14/16 [History] Tizanidine HCl [Zanaflex] 2 mg PO TID PRN 06/14/16 [History] Furosemide [Lasix] 20 mg PO BID #90 tablet 06/18/16 [Rx] Potassium Chloride 10 meq PO BIDWM #60 tab.er.prt 06/18/16 [Rx] Acetaminophen w/Cod 300-30 mg [Tylenol w/Codeine #3] 1 tab PO Q8H PRN 09/22/16 [ History] Warfarin [Coumadin] 5 mg PO DAILY 09/22/16 [History] Ipratropium/Albuterol Neb [Duoneb] 3 ml IH QIDR #3 inhsol 09/24/16 [Rx] Isosorbide MONOnitrate (24 HR) [Imdur] 120 mg PO DAILY #30 tab.er.24h 09/24/16 [ Rx] Omeprazole [PriLOSEC] 40 mg PO DAILY@0630 #30 capsule.dr 09/24/16 [Rx] Ranolazine [Ranexa] 1,000 mg PO BID #60 tab.er.12h 09/24/16 [Rx] Allergies/Adverse Reactions: Allergies tramadol Allergy (Verified 02/10/15 17:31) Hives Procedures/tests Complete & Pending: Procedures Performed prior 72 hours Category Date Time Status EV echocardiogram w enhance Routine Y 09/23/16 07:00 Completed Date of admission: 09/22/16 12:35 Primary care physician: Colten Roman DO Consults: 09/22/16 15:14 Consult to Cardiology [CONS] Routine Comment: Consulting Provider: Cardiology Alia Reason for Consult: 45M Hx of CABG, ischemic cardiomyopathy with Chest pain unrelieved by nitro. Call Completed: Yes Discharging clinician: Jeferson Gonazlez Anticipated date of discharge: 09/24/16 - Patient Status Disposition: Home, Self-Care Condition: Good Overall status at discharge: patient is back to baseline - Discharge Instructions - Diet and Activity Activity: increase activity as tolerated Diet: advance to your usual diet Hospital course: Mr. Piedra is a 45 year old male - Time Spent with Patient Total time spent providing and/or coordinating discharge services: - Constitutional Vitals: Temp Pulse Resp BP Pulse Ox 97.8 F 59 16 127/84 95 09/24/16 07:29 09/24/16 07:29 09/24/16 07:29 09/24/16 07:29 09/24/16 07:29 General appearance: Present: A&O X 3, pleasant, no acute distress - Eye Eye exam: Present: PERRL, conjuntiva pink, sclera anicteric Pupils: Present: PERRL - Neck Neck exam general surgery: Present: supple, trachea midline. Absent: lymphadenopathy - Respiratory Respiratory exam: Present: CTAB. Absent: accessory muscle use, rales, rhonchi, wheezes - Cardiovascular Cardiovascular exam: Present: RRR, +S1, +S2. Absent: diastolic murmur, gallop, rubs, systolic murmur - GI/Abdominal GI/Abdominal exam: Present: normal bowel sounds, soft, no peritoneal signs. Absent: distended, tenderness - Extremities Exam Extremities exam: Present: warm, radial pulses palpable and symetrical. Absent : calf tenderness, cyanotic, pedal edema
[2016-09-24 11:53] VITALS: BP 107/76
[2016-09-24] MEDS ORDERED: Isosorbide MONOnitrate (24 HR) 30 MG TAB.ER.24H PO ONE (15:03)
== END 2016-09-24 12:29 | disposition home or self-care (01) ==
LOC: EMEROO 10:01 → 2NENU 10:01 → 2ANU 15:54
PROVIDERS: ADMIT Internal Medicine Pulmonary Disease; ATTEND Internal Medicine Pulmonary Disease

== ENCOUNTER 2021-04-05 15:19 | Observation (INO) ==
[2021-04-05] MEDS ORDERED: *HR* Heparin 5,000 UNIT/ML VIAL IVP PRN ×2 (20:14)
[2021-04-05] MEDS ORDERED: *HR* Heparin 5,000 UNIT/ML VIAL IVP ONE (20:14)
[2021-04-05 20:53] LABS: Eosinophils % 1.5 %; Immature Granulocytes % 0.4 % (0-4)
[2021-04-05 20:55] LABS: Heparin anti-factor XA UFH < 0.04 IU/mL (0.30-0.70); INR 2.7; Prothrombin Time 30.4 Seconds (9.4-12.1)
[2021-04-05 20:58] LABS: Activated Partial Thrombo Time 42.3 Seconds (26.0-36.0); Basophils % 0.3 %; Eosinophils # 0.2 K/mcL (0.0-0.6); Hematocrit 52.5 % (37.5-50.1); Immature Platelets 5.2 % (1.1-6.1); Lymphocytes # 4.2 K/mcL (0.6-4.6); Mean Corpuscular HGB Conc 34.3 g/dL (31.6-35.5); Mean Corpuscular Hemoglobin 31.7 pg (28.0-33.3); Mean Corpuscular Volume 92.6 fL (83.0-100.0); Mean Platelet Volume 10.7 fL (9.4-12.4); Monocytes % 8.3 %; Platelet Count 296 K/mcL (140-400); Red Blood Count 5.67 M/mcL (4.19-5.50); Segmented Neutrophils % 55.5 %; White Blood Count 12.3 K/mcL (4.3-11.1)
[2021-04-05 21:00] LABS: Neutrophils # 6.8 K/mcL (1.6-8.9)
[2021-04-05 21:08] LABS: BUN/Creatinine Ratio 24 (6-26); Blood Urea Nitrogen 23 mg/dL (6-20); Carbon Dioxide 33 mEq/L (23-29); Chloride 97 mEq/L (98-107); Glucose 105 mg/dL (70-105); Osmolality,Calculated 288 (280-300); Potassium 4.1 mEq/L (3.5-5.1); Sodium 137 mEq/L (136-145); eGFR For African Americans > 60 (> 60); eGFR For Non-African Americans > 60 (> 60)
[2021-04-05] MEDS: Heparin 25,000UNIT/250ML 1/2NS 25,000 UNIT/250 ML IV.SOLN IVC SCH (21:20)
[2021-04-05 21:22] LABS: Platelet Estimate Normal (Normal); Reactive Lymphocytes Present (Not Present)
[2021-04-06] MEDS ORDERED: Ondansetron 4 MG/2 ML VIAL IVP PRN (00:04)
[2021-04-06] MEDS ORDERED: Melatonin 3 MG TABLET PO PRN (00:04)
[2021-04-06] MEDS ORDERED: Naloxone 0.4 MG/ML INJ IVP PRN (00:04)
[2021-04-06] MEDS ORDERED: Acetaminophen 325 MG TABLET PO PRN (00:04)
[2021-04-06 04:14] VITALS: O2SAT 96
[2021-04-06 04:45] LABS: Basophils # 0.1 K/mcL (0.0-0.2); Basophils % 0.5 %; Eosinophils # 0.4 K/mcL (0.0-0.6); Eosinophils % 2.8 %; Hematocrit 50.1 % (37.5-50.1); Hemoglobin 17.3 g/dL (12.9-16.9); Immature Granulocytes % 0.5 % (0-4); Lymphocytes # 5.3 K/mcL (0.6-4.6); Lymphocytes % 40.5 %; Mean Corpuscular HGB Conc 34.5 g/dL (31.6-35.5); Mean Corpuscular Hemoglobin 31.6 pg (28.0-33.3); Mean Corpuscular Volume 91.4 fL (83.0-100.0); Mean Platelet Volume 10.6 fL (9.4-12.4); Monocytes # 1.1 K/mcL (0.0-1.3); Neutrophils # 6.3 K/mcL (1.6-8.9); Platelet Count 247 K/mcL (140-400); Red Blood Count 5.48 M/mcL (4.19-5.50); Segmented Neutrophils % 47.7 %; White Blood Count 13.1 K/mcL (4.3-11.1)
[2021-04-06 05:01] LABS: Alanine Aminotransferase 22 Units/L (7-52); Albumin 4.1 g/dL (3.5-5.7); Albumin/Globulin Ratio 1.6 (1.1-2.2); Alkaline Phosphatase 54 Units/L (34-104); Aspartate Amino Transferase 13 Units/L (13-39); BUN/Creatinine Ratio 28 (6-26); Bilirubin,Total 0.9 mg/dL (0.3-1.0); Blood Urea Nitrogen 22 mg/dL (6-20); Calcium 9.5 mg/dL (8.6-10.3); Carbon Dioxide 27 mEq/L (23-29); Chloride 101 mEq/L (98-107); Globulin 2.5 g/dL (2.4-3.5); Glucose 105 mg/dL (70-105); Osmolality,Calculated 284 (280-300); Phosphorous 3.6 mg/dL (2.7-4.5); Potassium 4.3 mEq/L (3.5-5.1); Sodium 135 mEq/L (136-145); Total Protein 6.6 g/dL (6.4-8.9); eGFR For African Americans > 60 (> 60); eGFR For Non-African Americans > 60 (> 60)
[2021-04-06 08:42] VITALS: BP 115/79; PULSE 66; TEMP 98.6
[2021-04-06] MEDS: Heparin 25,000UNIT/250ML 1/2NS 25,000 UNIT/250 ML IV.SOLN IVC SCH (14:01)
== END 2021-04-06 15:58 | disposition home or self-care (01) ==
LOC: 2ANU 15:19 → EMEROOARM 15:19 → SUATTDRO 23:44 → 2ANU 04-06 00:38
PROVIDERS: ADMIT Internal Medicine; ATTEND Internal Medicine

== ENCOUNTER 2022-01-02 21:17 | Inpatient (IN) ==
[2022-01-02] MEDS ORDERED: 0.9 % Sodium Chloride 1,000 ML IVC SCH (23:45)
[2022-01-02] MEDS ORDERED: Naloxone 0.4 MG/ML INJ IVP PRN (23:55)
[2022-01-02] MEDS ORDERED: Ondansetron 4 MG/2 ML VIAL IVP PRN (23:55)
[2022-01-03 01:18] LABS: Hemoglobin 13.8 g/dL (12.9-16.9); Mean Corpuscular HGB Conc 33.7 g/dL (31.6-35.5); Mean Corpuscular Hemoglobin 31.4 pg (28.0-33.3); Mean Corpuscular Volume 93.2 fL (83.0-100.0); Mean Platelet Volume 11.3 fL (9.4-12.4); Platelet Count 246 K/mcL (140-400); Red Cell Distribution Width 14.3 % (11.5-14.5); White Blood Count 8.2 K/mcL (4.3-11.1)
[2022-01-03 01:41] LABS: Calcium 9.8 mg/dL (8.6-10.3); Potassium 5.9 mEq/L (3.5-5.1)
[2022-01-03 01:42] LABS: Calcium 9.9 mg/dL (8.6-10.3)
[2022-01-03 05:14] LABS: Creatinine,Urine 94 mg/dL; Protein/Creatinine Ratio,Urine 0.09 mg/mg (0.00-0.20); Sodium, Urine 37.9 mEq/L
[2022-01-03 05:16] LABS: Amphetamine Screen,Urine Negative ng/mL (Cutoff=1000); Barbiturate Screen,Urine Positive ng/mL (Cutoff=200); Benzodiazepines Screen,Urine Negative ng/mL (Cutoff=200); Cannabinoid Screen,Urine Negative ng/mL (Cutoff = 50); Cocaine Screen,Urine Negative ng/mL (Cutoff= 300); Opiate Screen,Urine Positive ng/mL (Cutoff=300); Phencyclidine Screen,Urine Negative ng/mL (Cutoff=25)
[2022-01-03] MEDS ORDERED: Insulin Human Regular 10 UNIT in 0.9 % Sodium Chloride 10 ML IV ONE (06:20)
[2022-01-03] MEDS ORDERED: *HR* Dextrose 50 % in Water (Syg) 50 ML SYRINGE IVP ONE (06:20)
[2022-01-03] MEDS ORDERED: Albuterol 2.5 MG/3 ML NEBULIZER IH ONE (06:21)
[2022-01-03] MEDS ORDERED: Calcium Gluconate 1gm/50mL 1 GM/50 ML BAG IVPB ONE (06:22)
[2022-01-03] MEDS: SODIUM ZIRCONIUM CYCLOSILICATE 5 GM POWD.PACK PO SCH ×2 (06:46→10:21)
[2022-01-03] MEDS: *HR* Enoxaparin 30 MG/0.3 ML SYRINGE SQ SCH (18:39)
[2022-01-03 19:06] LABS: Calcium 9.4 mg/dL (8.6-10.3); Potassium 5.2 mEq/L (3.5-5.1)
[2022-01-03] MEDS: Levalbuterol Neb 1.25 MG/3 ML IH SCH ×2 (22:38)
[2022-01-04] MEDS: Levalbuterol Neb 1.25 MG/3 ML IH SCH ×4 (03:46→22:32)
[2022-01-04] MEDS: *HR* Enoxaparin 30 MG/0.3 ML SYRINGE SQ SCH (05:15)
[2022-01-04 07:18] LABS: Calcium 9.1 mg/dL (8.6-10.3); Potassium 4.9 mEq/L (3.5-5.1)
[2022-01-04] MEDS: SODIUM ZIRCONIUM CYCLOSILICATE 5 GM POWD.PACK PO SCH (07:28)
[2022-01-04 19:54] VITALS: BP 101/68; PULSE 78; TEMP 99; O2SAT 94
[2022-01-05] MEDS ORDERED: *HR* Enoxaparin 40 MG/0.4 ML SYRINGE SQ SCH (06:00)
[2022-01-05] MEDS ORDERED: Aspirin Enteric Coated 81 MG Tablet PO SCH (09:00)
== END 2022-01-04 21:30 | DRG 469 ==
LOC: 2ANU → SUATTDRO 01-03 16:40
PROVIDERS: ADMIT Internal Medicine; ATTEND Family Medicine